=== PATIENT | female | born 1980 | race Caucasian/White ===

== ENCOUNTER 2023-10-02 09:55 | Outpatient (AMB) | payer OTHER, SELFPAY ==
--- NOTE | 2023-10-02 10:09 | HO.NEPHOV ---
HPI HPI Comments History of Present Illness Details Marleni was seen in follow-up of her hypertension. She recently had an upper respiratory issues needing antibiotics. Her blood pressure had been well controlled on losartan 50 mg and amlodipine 10 mg daily. She is continuing to try to lose weight and compliant with low-sodium diet. She denies any chest pain, shortness of breath, paroxysmal nocturnal dyspnea, orthopnea, pedal edema, dizziness, nausea, vomiting or diarrhea. She has no side effects from her current blood pressure medications. She does not have any headache, visual disturbances or weakness. Her renal functions have been normal. She is not taking any [id number] medications. 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 Candidiasis of vagina Asthma Anxiety Hypertension Surgical History (Updated 10/02/23 @ 09:00 by Yadi Hinson MA) History of tonsillectomy and adenoidectomy History of hysterectomy Family History (Updated 10/02/23 @ 09:02 by Yadi Hinson MA) Mother Cancer of kidney Father Diabetes Hypertension Heart disease Maternal Grandmother Cancer of kidney Maternal Aunt Cancer of kidney Social History (Updated 10/02/23 @ 09:02 by Yadi Hinson MA) Alcohol intake: never Patient Tobacco Use Status: Never used Tobacco Vital Signs 10/02/23 10:10 Height 5 ft 2 in Weight 231 lb 2 oz BMI 42.3 BP 134/90 H Blood Pressure Location Lt brachial Position Sitting Pulse 98 Pulse Source Pulse Oximeter Physical Exam Vital Signs: Last Vital Signs Pulse 98 10/02/23 10:10 BP 134/90 H 10/02/23 10:10 BMI result Body Mass Index 42.3 Const General: comfortable and no acute distress Orientation/consciousness: patient oriented x3 HEENT Head: Yes normocephalic Mouth: Normal oral and palatal mucosa present Eyes EOM: EOMs intact bilaterally Neck Neck: Yes supple Resp Auscultation: clear to auscultation bilaterally Cardio Jugular venous distension: no JVD Rate: regular rate Heart sounds: Murmur heart sound present GI Palpation (GI): Soft to palpation Auscultation: normal bowel sounds General: Yes no CVA tenderness Back/Spine/Pelvis Back: no CVA tenderness Skin General skin exam: no rashes or lesions noted Neuro General: patient oriented x3 and moves all extremities Extrem General: Yes no pedal edema Assessment & Plan Assessment & Plan (1) Hypertension: Code(s): I10 - Essential (primary) hypertension Qualifiers: Hypertension type: primary hypertension Qualified Code(s): I10 - Essential (primary) hypertension Plan Marleni is known to have hypertension for some time. She was extensively worked up to rule out secondary causes, which all had been negative. Her renal functions are normal. She is trying to be compliant with a low-sodium diet and is trying to lose some weight. She has no history of any end-organ damage. Her blood pressure is at goal at home. She is currently on losartan 50 mg and amlodipine 10 mg daily. I discontinued her amlodipine and started her on 100 mg losartan daily. She is going to check her electrolytes and renal functions in a month before following up. She was updated about the side effects of losartan. She was encouraged to maintain well hydrated and avoid nonsteroidal anti-inflammatory medications. All questions were answered. Follow-up appointment was given. Time for retrieval of data, patient encounter and documentation 24 minutes. Orders: Orders Creatinine Today I10 - Essential (primary) hypertension Electrolytes Today I10 - Essential (primary) hypertension Coding Level of Care Code Est Pt Level 3 (73738) Diagnoses Primary hypertension I10 Hypertension type: primary hypertension
[2023-10-02 10:10] VITALS: BP 134/90; PULSE 98; BMI 42.3
== END 2023-10-02 10:57 | disposition home or self-care (01) ==
PROVIDERS: PCP Internal Medicine; Visit Provider Internal Medicine Nephrology
DX: I10 Essential (primary) hypertension (principal); Z79.899 Other long term (current) drug therapy
CPT/HCPCS: 99213

== ENCOUNTER → 2023-10-02 09:55 | Outpatient (BNVA) | payer OTHER, SELFPAY | PROVIDERS: PCP Internal Medicine; Visit Provider Internal Medicine Nephrology ==

== ENCOUNTER 2023-12-06 09:59 | Outpatient (AMB) | payer OTHER, SELFPAY ==
--- NOTE | 2023-12-06 10:00 | HO.NEPHOV ---
HPI HPI Comments History of Present Illness Details Marleni was seen in follow-up of her hypertension. Her blood pressure had been well controlled on losartan 50 mg and amlodipine 10 mg daily. She is continuing to try to lose weight and compliant with low-sodium diet. She denies any chest pain, shortness of breath, paroxysmal nocturnal dyspnea, orthopnea, pedal edema, dizziness, nausea, vomiting or diarrhea. She has no side effects from her current blood pressure medications. She does not have any headache, visual disturbances or weakness. Her renal functions have been normal. She is not taking any [id number] medications. 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 Candidiasis of vagina Asthma Anxiety Hypertension Surgical History History of tonsillectomy and adenoidectomy History of hysterectomy Family History Mother Cancer of kidney Father Diabetes Hypertension Heart disease Maternal Grandmother Cancer of kidney Maternal Aunt Cancer of kidney Social History Alcohol intake: never Patient Tobacco Use Status: Never used Tobacco Vital Signs 12/06/23 10:00 12/06/23 10:01 12/06/23 10:20 Height 5 ft 2 in Weight 229 lb 8 oz BP 138/88 128/88 Blood Pressure Location Lt brachial Position Sitting Pulse 98 Pulse Source Pulse Oximeter Pulse Oximetry (%) 97 Oxygen Delivery Method Room Air Physical Exam Vital Signs: Last Vital Signs Pulse 98 12/06/23 10:01 BP 138/88 12/06/23 10:01 Pulse Ox 97 12/06/23 10:01 Oxygen Delivery Method Room Air 12/06/23 10:01 Const General: comfortable and no acute distress Orientation/consciousness: patient oriented x3 HEENT Head: Yes normocephalic Mouth: Normal oral and palatal mucosa present Eyes EOM: EOMs intact bilaterally Neck Neck: Yes supple Resp Auscultation: clear to auscultation bilaterally Cardio Jugular venous distension: no JVD Rate: regular rate GI Palpation (GI): Soft to palpation Auscultation: normal bowel sounds General: Yes no CVA tenderness Back/Spine/Pelvis Back: no CVA tenderness Skin General skin exam: no rashes or lesions noted Neuro General: patient oriented x3 and moves all extremities Extrem General: Yes no pedal edema Assessment & Plan Assessment & Plan (1) Hypertension: Code(s): I10 - Essential (primary) hypertension Qualifiers: Hypertension type: primary hypertension Qualified Code(s): I10 - Essential (primary) hypertension Plan Marleni is known to have hypertension for some time. She was extensively worked up to rule out secondary causes, which all had been negative. Her renal functions are normal. She is trying to be compliant with a low-sodium diet and is trying to lose some weight. She has no history of any end-organ damage. Her blood pressure is at goal at home. She was on losartan 50 mg and amlodipine 10 mg daily. I discontinued her amlodipine at the last visit and started her on 100 mg losartan daily. F/U labs ordered. She was updated about the side effects of losartan. She was encouraged to maintain well hydrated and avoid nonsteroidal anti-inflammatory medications. All questions were answered. Follow-up appointment was given Orders: Orders Electrolytes Today I10 - Essential (primary) hypertension Blood Urea Nitrogen Today I10 - Essential (primary) hypertension Creatinine Today I10 - Essential (primary) hypertension Medications: Changed From losartan 100 mg PO DAILY To losartan 100 mg PO DAILY 90 days 90 tabs 3RF Coding Level of Care Code Est Pt Level 3 (59288) Diagnoses Primary hypertension I10 Hypertension type: primary hypertension Results Reviewed Nephrology Results: No Data to Display
[2023-12-06 10:01] VITALS: BP 138/88; PULSE 98; O2SAT 97
[2023-12-06 10:20] VITALS: BP 128/88
== END 2023-12-06 10:26 | disposition home or self-care (01) ==
PROVIDERS: PCP Internal Medicine; Visit Provider Internal Medicine Nephrology
DX: I10 Essential (primary) hypertension (principal)
CPT/HCPCS: 99213

== ENCOUNTER → 2023-12-06 09:59 | Outpatient (BNVA) | payer OTHER, SELFPAY | PROVIDERS: PCP Internal Medicine; Visit Provider Internal Medicine Nephrology ==

== ENCOUNTER 2024-06-05 09:30 | Outpatient (AMB) | payer OTHER, SELFPAY ==
[2024-06-05 09:34] VITALS: BP 124/88; PULSE 87; O2SAT 98; BMI 40.6
--- NOTE | 2024-06-05 09:34 | HO.NEPHOV_ITS ---
Vital Signs 06/05/24 09:34 Height 5 ft 2 in Weight 222 lb BMI 40.6 BP 124/88 Blood Pressure Location Lt brachial Position Sitting Pulse 87 Pulse Source Pulse Oximeter Pulse Oximetry (%) 98 Oxygen Delivery Method Room Air Intake Visit Reasons: 6M follow up/ Conf Bread Panner Required: No Accompanied by: Self / Same As Patient Allergies cetrorelix Allergy (Verified 06/05/24 09:36) Unknown fish oil Allergy (Verified 06/05/24 09:36) Hives metoclopramide Allergy (Verified 06/05/24 09:36) Hives Seasonal Allergies Allergy (Verified 06/05/24 09:36) Unknown Hydrocodone-Acetaminophen Adverse Reaction (Uncoded 10/02/23 09:05) Migraine HPI Comments Details: Marleni was seen in follow-up of her hypertension. Her blood pressure had been well controlled on losartan 50 mg and amlodipine 10 mg daily. She is continuing to try to lose weight and compliant with low-sodium diet. She denies any chest pain, shortness of breath, paroxysmal nocturnal dyspnea, orthopnea, pedal edema, dizziness, nausea, vomiting or diarrhea. She has no side effects from her current blood pressure medications. She does not have any headache, visual disturbances or weakness. Her renal functions have been normal. She is not taking any [id number] medications. She was started on Ozempic with weight loss of 8 pounds in 2 months. 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 Candidiasis of vagina Asthma Anxiety Hypertension Surgical History History of tonsillectomy and adenoidectomy History of hysterectomy Family History Mother Cancer of kidney Father Diabetes Hypertension Heart disease Maternal Grandmother Cancer of kidney Maternal Aunt Cancer of kidney Social History Alcohol intake: never Patient Tobacco Use Status: Never used Tobacco Physical Exam Vital Signs: Last Vital Signs Pulse 87 07/18/24 09:34 BP 124/88 06/05/24 09:34 Pulse Ox 98 06/05/24 09:34 Oxygen Delivery Method Room Air 06/05/24 09:34 BMI result Body Mass Index 40.6 Const General: comfortable and no acute distress Orientation/consciousness: patient oriented x3 HEENT Head: Yes normocephalic Mouth: Normal oral and palatal mucosa present Eyes EOM: EOMs intact bilaterally Neck Neck: Yes supple Resp Auscultation: clear to auscultation bilaterally Cardio Jugular venous distension: no JVD Rate: regular rate GI Palpation (GI): Soft to palpation Auscultation: normal bowel sounds General: Yes no CVA tenderness Back/Spine/Pelvis Back: no CVA tenderness Skin General skin exam: no rashes or lesions noted Neuro General: patient oriented x3 and moves all extremities Extrem General: Yes no pedal edema Results Reviewed Nephrology Results: No Data to Display Assessment & Plan Assessment & Plan (1) Hypertension: Code(s): I10 - Essential (primary) hypertension Category: Medical Qualifiers: Hypertension type: primary hypertension Qualified Code(s): I10 - Essential (primary) hypertension Plan Marleni is known to have hypertension for some time. She was extensively worked up to rule out secondary causes, which all had been negative. Her renal functions are normal. She is trying to be compliant with a low-sodium diet and is trying to lose some weight. She has no history of any end-organ damage. Her blood pressure is at goal at home. She is losartan 100 mg daily. She was encouraged to maintain well hydrated and avoid nonsteroidal anti-inflammatory medications. All questions were answered. Follow-up appointment was given Coding Level of Care Code Est Pt Level 4 (24151) Diagnoses Primary hypertension I10 Hypertension type: primary hypertension
== END 2024-06-05 09:54 | disposition home or self-care (01) ==
PROVIDERS: PCP Internal Medicine; Visit Provider Internal Medicine Nephrology
DX: I10 Essential (primary) hypertension (principal)
CPT/HCPCS: 99214

== ENCOUNTER → 2024-06-05 09:30 | Outpatient (BNVA) | payer OTHER, SELFPAY | PROVIDERS: PCP Internal Medicine; Visit Provider Internal Medicine Nephrology ==